=== PATIENT | female | born 1990 | race Caucasian/White ===

== ENCOUNTER 2019-03-24 08:14 | Emergency (ER) | payer OTHER, BC ==
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
[2019-03-24 10:23] VITALS: BP 113/88; PULSE 75
--- NOTE | 2019-03-24 11:53 | CR ---
Left shoulder: Three views of the left shoulder were obtained. Comparison: No prior left shoulder exam. Glenohumeral joint and acromioclavicular joint appears unremarkable. No fracture, dislocation or other bony abnormality is seen. Impression: 1. No abnormality is appreciated on left shoulder study. Diagnostic code #1 This report was dictated in [place] Standard Time
--- NOTE | 2019-03-24 11:54 | CR ---
Cervical spine: AP, lateral and odontoid views of the cervical spine were obtained. Comparison: No previous study. Vertebral body heights and disc spaces are maintained. Minimal cervical kyphosis is seen. Mild scoliosis is noted. No fracture or subluxation is seen. Impression: 1. Mild kyphoscoliosis. 2. Three-view cervical spine study is otherwise unremarkable. Diagnostic code #2 This report was dictated in [place] Standard Time
== END 2019-03-24 10:20 | disposition home or self-care (01) ==
LOC: JD.ED 08:14
DX: S16.1XXA Strain of muscle, fascia and tendon at neck level, initial encounter (principal); M25.512 Pain in left shoulder; V44.5XXA Car driver injured in collision with heavy transport vehicle or bus in traffic accident, initial encounter; Y92.410 Unspecified street and highway as the place of occurrence of the external cause
CPT/HCPCS: 72040; 72040-26; 73030-26-LT; 73030-LT; 99282; 99285-25

== ENCOUNTER 2021-03-08 07:06 | Inpatient (IN) | payer BC, OTHER ==
[2021-03-08] MEDS ORDERED: Ondansetron 4 MG/2 ML SDV IVPUSH PRN (07:18)
[2021-03-08] MEDS ORDERED: Nalbuphine 10 MG/1 ML Vial IVPUSH PRN (07:18)
[2021-03-08] MEDS ORDERED: Oxytocin/Lactated Ringers 10 UNIT/1,000 ML BAG IV SCH ×2 (07:30)
[2021-03-08] MEDS: Lactated Ringers 1,000 ML IV SCH ×3 (08:50→13:45)
[2021-03-08] MEDS ORDERED: Sodium Chloride 0.9% 10 ML Syringe FLUSH SCH (09:00)
[2021-03-08] MEDS ORDERED: fentaNYL 100 MCG/2 ML SDV ONE (11:16)
[2021-03-08] MEDS ORDERED: Bupivacaine/fentaNYL/NS 100 ML Bag EPIDUR PRN (11:45)
[2021-03-08] MEDS ORDERED: ePHEDrine 50 MG/ML SDV IVPUSH PRN (11:45)
[2021-03-08] MEDS ORDERED: diphenhydrAMINE 50 MG/ML SDV IVPUSH PRN (11:45)
[2021-03-08] MEDS: fentaNYL 100 MCG/2 ML SDV EPIDUR PRN ×2 (11:51→18:01)
[2021-03-08] MEDS ORDERED: Lidocaine 1.5% with EPINEPHrine 1:200,000 5 ML Amp ONE (16:00)
[2021-03-08] MEDS ORDERED: Dexmedetomidine 200 MCG/2 ML SDV ONE (17:43)
[2021-03-08] MEDS ORDERED: Witch Hazel Medicated Pads 40/Jar TOP PRN (19:36)
[2021-03-08] MEDS ORDERED: Benzocaine/Menthol 20%-0.5% Spray 78 GM Cannister TOP PRN (19:36)
[2021-03-08] MEDS: Docusate Sodium 100 MG Cap PO PRN (21:54)
[2021-03-08] MEDS: Ibuprofen 600 MG Tab PO PRN (21:54)
[2021-03-09] MEDS: Acetaminophen 325 MG Tab PO PRN ×2 (04:18→12:18)
[2021-03-09] MEDS: Docusate Sodium 100 MG Cap PO PRN (07:59)
[2021-03-09] MEDS: Ibuprofen 600 MG Tab PO PRN (07:59)
[2021-03-09] MEDS ORDERED: Measles, Mumps & Rubella Vaccine 0.5 ML SDV SUBCUT ONE (19:04)
[2021-03-09 19:37] VITALS: BP 105/62; PULSE 92
== END 2021-03-09 19:30 | disposition home or self-care (01) | DRG 560 ==
LOC: UNDOADMOB 07:06 → JD.OB 07:06 → EDSTATUS 12:21 → JD.OB 18:53 → OBSVTOIN 18:53 → JD.OB 18:54
PROVIDERS: ADMIT Obstetrics & Gynecology; ATTEND Obstetrics & Gynecology
PROC: 10E0XZZ Delivery of Products of Conception, External Approach (ICD-10-PCS; principal; 2021-03-08)
PROC: 10907ZC Drainage of Amniotic Fluid, Therapeutic from Products of Conception, Via Natural or Artificial Opening (ICD-10-PCS; 2021-03-08)
PROC: 3E033VJ Introduction of Other Hormone into Peripheral Vein, Percutaneous Approach (ICD-10-PCS; 2021-03-08)
PROC: 3E0R3BZ Introduction of Anesthetic Agent into Spinal Canal, Percutaneous Approach (ICD-10-PCS; 2021-03-08)
DX: O70.1 Second degree perineal laceration during delivery (principal); Z3A.39 39 weeks gestation of pregnancy; Z37.0 Single live birth
CPT/HCPCS: 01967; 36415; 51702; 59025; 59409; 85027; 86592; 86850; 86900; 86901; 90707; A9270-GY; J2405; J2590; J3010; J7120; U0002

== ENCOUNTER 2023-06-08 15:25 | Inpatient (IN) | payer BC ==
[~2023-06-08 15:25] MED LIST: Lidocaine 1.5% with EPINEPHrine 1:200,000 5 ML Amp ONE; ePHEDrine 50 MG/ML SDV ONE
[2023-06-08] MEDS ORDERED: Nalbuphine 10 MG/ML Syringe IVPUSH PRN (17:03)
[2023-06-08 17:27] LABS: BASOPHILS PERCENT AUTO 0.3 % (0.0-1.0); EOSINOPHILS PERCENT AUTO 0.5 % (0.0-6.0); HEMATOCRIT 34.1 % (37.0-47.0); HEMOGLOBIN 11.7 gm/dl (12.0-16.0); IMMATURE GRAN ABSOLUTE AUTO 0.02 K/mm3 (0.00-0.05); IMMATURE GRAN PERCENT AUTO 0.3 % (0.0-0.4); LYMPHOCYTES ABSOLUTE AUTO 1.5 K/mm3 (1.0-4.8); LYMPHOCYTES PERCENT AUTO 18.5 % (24.0-44.0); MEAN CORPUSCULAR HEMOGLOBIN 27.9 pg (28.0-32.0); MEAN CORPUSCULAR HGB CONC 34.3 g/dl (32.0-36.0); MEAN CORPUSCULAR VOLUME 81.2 fl (83.0-99.0); MEAN PLATELET VOLUME 10.3 fl (9.4-12.3); MONOCYTES ABSOLUTE AUTO 0.7 K/mm3 (0.0-0.8); MONOCYTES PERCENT AUTO 8.9 % (0.0-8.0); NEUTROPHILS ABSOLUTE AUTO 5.7 K/mm3 (1.8-7.7); NEUTROPHILS PERCENT AUTO 71.5 % (41.0-71.0); PLATELET COUNT,PLT 164 K/mm3 (150-400); WHITE BLOOD CELL COUNT,WBC 7.99 K/mm3 (3.9-11.3)
[2023-06-08] MEDS ORDERED: Oxytocin/Lactated Ringers 30 UNIT/500 ML BAG IV SCH (17:45)
[2023-06-08] MEDS: Lactated Ringers 1,000 ML IV SCH (18:35)
[2023-06-08] MEDS: Oxytocin/Lactated Ringers 30 UNIT/500 ML BAG IV SCH (18:41)
[2023-06-08] MEDS ORDERED: ePHEDrine 50 MG/ML SDV IVPUSH PRN (19:34)
[2023-06-08] MEDS ORDERED: diphenhydrAMINE 50 MG/ML SDV IVPUSH PRN (19:34)
[2023-06-08] MEDS: fentaNYL 100 MCG/2 ML SDV EPIDUR PRN (19:43)
[2023-06-08] MEDS: Bupivacaine/fentaNYL/NS 100 ML Bag EPIDUR PRN (19:44)
[2023-06-08] MEDS: Famotidine 20 MG Tab PO SCH (21:37)
[2023-06-09] MEDS ORDERED: Acetaminophen 325 MG Tab PO PRN (00:24)
[2023-06-09] MEDS: Lidocaine 1% 50 ML MDV INJECT PRN (01:34)
[2023-06-09] MEDS: Docusate Sodium 100 MG Cap PO PRN (02:42)
[2023-06-09] MEDS: Witch Hazel Medicated Pads 40/Jar TOP PRN (02:43)
[2023-06-09] MEDS: Ibuprofen 600 MG Tab PO PRN (02:44)
[2023-06-09] MEDS: Benzocaine/Menthol 20%-0.5% Spray 78 GM Cannister TOP PRN (02:44)
[2023-06-10] MEDS: Pantoprazole 40 MG Tab.CR PO SCH (10:06)
[2023-06-10 10:31] VITALS: BP 133/95; PULSE 88
== END 2023-06-10 14:05 | disposition home or self-care (01) | DRG 560 ==
LOC: JD.OBCHECK 15:25 → JD.OB 15:41 → JD.OBCHECK 17:58 → JD.OB 17:59 → OBSVTOIN 23:55 → JD.OB 23:56
PROVIDERS: ADMIT Obstetrics & Gynecology; ATTEND Obstetrics & Gynecology
PROC: 10E0XZZ Delivery of Products of Conception, External Approach (ICD-10-PCS; principal; 2023-06-08)
PROC: 0KQM0ZZ Repair Perineum Muscle, Open Approach (ICD-10-PCS; 2023-06-08)
PROC: 3E0R3BZ Introduction of Anesthetic Agent into Spinal Canal, Percutaneous Approach (ICD-10-PCS; 2023-06-08)
PROC: 00HU33Z Insertion of Infusion Device into Spinal Canal, Percutaneous Approach (ICD-10-PCS; 2023-06-08)
DX: O42.02 Full-term premature rupture of membranes, onset of labor within 24 hours of rupture (principal); O99.344 Other mental disorders complicating childbirth; F41.9 Anxiety disorder, unspecified; F32.A Depression, unspecified; O99.62 Diseases of the digestive system complicating childbirth; K21.9 Gastro-esophageal reflux disease without esophagitis; O99.52 Diseases of the respiratory system complicating childbirth; J45.909 Unspecified asthma, uncomplicated; O70.1 Second degree perineal laceration during delivery; Z79.899 Other long term (current) drug therapy; Z3A.38 38 weeks gestation of pregnancy; Z37.0 Single live birth
CPT/HCPCS: 36415; 51702; 59025; 59409; 84112; 85025; 86592; 86850; 86900; 86901; A9270-GY; J2001; J3010; J3490; J7120; J7999